=== PATIENT | female | born 1980 | race African-American/Black ===

== ENCOUNTER 2017-11-15 22:22 | Observation (INO) ==
[2017-11-15 22:32] VITALS: BMI 31.1
--- NOTE | 2017-11-16 01:03 | DR.GENAD ---
HPI PCP Primary Care Physician: CASTILLO Complaint/Symptoms Chief Complaint Doctors Comments: Patient presents with complaint of chest and back pain for 4 days. She admits to a history of cardiac catherization x2 w/o any blockage two years ago in [place]. Chief Complaint:: CHEST PAIN FROM BACK DOWN TO LEG Self Treatment fo Chief Complaint: MOTRIN 800MG Source History Provided: Patient Mode of Arrival Mode of Arrival: Ambulatory Timing Onset of Chief Complaint: 11/11/17 Came on: Suddenly Duration Duration: Constant (four days) Severity Severity: Mild PMH PMH Past Medical History: Yes Past Medical History: Diabetes and Hypertension Past Surgical History: Yes Surgical History: Cholecystectomy Past Surgical History Comment: ABLASION TUBAL LIGATION 2 HEART CATHS- BOTH NORMAL PER PATIENT Family History History of Family Medical Conditions: Yes Family Medical History: Heart Failure Family Medical History Comment: RENAL FAILURE Social History Does patient currently use any type of tobacco product: Yes Have you used tobacco products in the last 12 months: Yes Type of Tobacco Use: Cigarettes Does any household member use tobacco: No Alcohol Use: None Do you use any recreational Drugs:: No Lives With: Mom Lives Where: Home infectious screening In the last 2 months have you had wt loss of >10#?: NO Have you had fever, night sweats or hemotysis?: No Have you traveled outside the country in the last 6 months?: No Isolation: Standard ROS Review of Systems Constitutional: No Symptoms Reported; negative Diaphoresis Eyes: No Symptoms Reported; negative Blurred Vision ENTM: negative Ear Discharge Respiratoy: No Symptoms Reported Cardiovascular: See HPI and Chest Pain Gastrointestinal/Abdominal: No Symptoms Reported Genitourinary: No Symptoms Reported Neurological: No Symptoms Reported Musculoskeletal: See HPI Integumentary: No Symptoms Reported Hematologic/Lymphatic: No Symptoms Reported Endocrine: No Symptoms Reported All Other Systems: Reviewed and Negative PE Vital Signs Vitals: Temperature 98.5 F Pulse Rate [Left Brachial] 77 Pulse Rate 88 Respiratory Rate 14 Blood Pressure [Left Arm] 138/82 Blood Pressure 117/77 O2 Sat by Pulse Oximetry 98 General Limitations: No Limitations General Appearance: Alert; negative In Distress Head Head Exam: Normal Inspection Eyes Eye exam: Normal Appearance ENT ENT Exam: Normal Exam External Ear Exam: Normal External Inspection TM/Canal Exam: Bilateral: Normal Nose Exam: Normal Nose Exam Mouth Exam: Normal Inspection Throat Exam: Normal Inspection Neck Neck Exam: Normal Inspection Chest Chest Inspection: Normal Inspection Respiratory Respiratory Exam: Normal Lung Sounds Bilat Respiratory Exam: Bilateral: Clear to Auscultation Cardiovascular Cardiovascular Exam: Regular Rate Abdominal Exam Abdominal Exam: Normal Inspection Abdominal Tenderness: negative RUQ and LLQ Extremities Extremities Exam: Tenderness Back Back Exam: Normal Inspection; negative (R) CVA Tenderness and Paraspinal Tenderness Neurologic Neurological Exam: Alert, Oriented X3, CN II-XII Intact and Normal Gait Psychiatric Psychiatric Exam: Normal Affect Skin Skin Exam: Warm and Normal Color; negative Diaphoresis COURSE Reevaluation 1st: Improved ROR Labs Reviewed Laboratory Results Reviewed?: Yes Result Diagrams: 11/16/17 01:15 11/16/17 01:15 Laboratory: WBC 8.7 X10^3/uL (3.6-10.0) 11/16/17 01:15 RBC 5.19 X10^6/uL (3.5-5.4) 11/16/17 01:15 Hgb 13.4 g/dL (12.0-16.0) 11/16/17 01:15 Hct 39.5 % (36.0-47.0) 11/16/17 01:15 MCV 76.0 fL (80.0-100.0) L 11/16/17 01:15 MCH 25.8 pg (27.0-34.0) L 11/16/17 01:15 MCHC 34.0 g/dL (33.0-35.0) 11/16/17 01:15 RDW 12.8 % (11.6-16.5) 11/16/17 01:15 Plt Count 295 X10^3/uL (150.0-450.0) 11/16/17 01:15 Plt Count Comment Adequate (ADEQUATE) 11/16/17 01:15 MPV 8.7 fL (7.4-11.0) 11/16/17 01:15 Neut % (Auto) 69.2 % (42.0-75.0) 11/16/17 01:15 Lymph % (Auto) 23.4 % (21.0-51.0) 11/16/17 01:15 [place] % (Auto) 6.4 % (0.0-13.0) 11/16/17 01:15 Eos % (Auto) 0.2 % (0.9-2.9) L 11/16/17 01:15 Baso % (Auto) 0.8 % (0.2-1.0) 11/16/17 01:15 Neut # (Auto) 6.0 x10^3/uL (2.2-4.8) H 11/16/17 01:15 Lymph # (Auto) 2.0 X10^3/uL (1.3-2.9) 11/16/17 01:15 [place] # (Auto) 0.6 x10^3/uL (0.3-0.8) 11/16/17 01:15 Eos # (Auto) 0.0 x10^3/uL (0.0-0.2) 11/16/17 01:15 Baso # (Auto) 0.1 X10^3/uL (0.0-0.1) 11/16/17 01:15 Absolute Nucleated RBC 0.1 /100WBC 11/16/17 01:15 Plt Morphology Comment Normal (NORMAL) 11/16/17 01:15 RBC Morphology Abnormal (NORMAL) A 11/16/17 01:15 Hypochromasia Slight A 11/16/17 01:15 Microcytosis Slight A 11/16/17 01:15 Sodium 136 mmol/L (136-145) 11/16/17 01:15 Potassium 3.7 mmol/L (3.5-5.1) 11/16/17 01:15 Chloride 97 mmol/L (98-107) L 11/16/17 01:15 Carbon Dioxide 32.4 mmol/L (21-32) H 11/16/17 01:15 Creatinine 0.85 mg/dL (0.55-1.02) 11/16/17 01:15 Creatine Kinase 27 Units/L (26-192) 11/16/17 01:15 CK-MB (CK-2) < 1.0 ng/mL (0-4.0) 11/16/17 01:15 CK/CKMB % Calc 3.7 % (<4) 11/16/17 01:15 Troponin I < 0.02 ng/mL (0-1.5) 11/16/17 01:15 XRAY XRAY Findings: Negative for acute pathology EKG Rate: 86 [place]: Normal Rhythm: NSR, SB, ST, PACs, Afib, Aflutter, PSVT, MAT, Junctional, JT, PVCs, VT, VF and Paced Hypertrophy: LAE and LVH
--- NOTE | 2017-11-16 01:27 | RAD ---
Chest two views Indication: Chest pain Findings: Comparison to previous exam of the chest December 23, The heart and mediastinum are normal. The lungs are clear. The skeleton is negative. Impression: Negative exam of the chest 2013 Reported By:
[2017-11-16 01:30] LABS: BASOPHILS # (AUTO) 0.1 X10^3/uL (0.0-0.1); BASOPHILS % (AUTO) 0.8 % (0.2-1.0); EOSINOPHILS % (AUTO) 0.2 % (0.9-2.9); HEMATOCRIT 39.5 % (36.0-47.0); HEMOGLOBIN 13.4 g/dL (12.0-16.0); LYMPHOCYTES % (AUTO) 23.4 % (21.0-51.0); MEAN CORPUSCULAR HEMOGLOBIN 25.8 pg (27.0-34.0); MEAN PLATELET VOLUME 8.7 fL (7.4-11.0); MONOCYTES # (AUTO) 0.6 x10^3/uL (0.3-0.8); MONOCYTES % (AUTO) 6.4 % (0.0-13.0); NEUTROPHILS % (AUTO) 69.2 % (42.0-75.0); PLATELET COUNT 295 X10^3/uL (150.0-450.0); RED BLOOD COUNT 5.19 X10^6/uL (3.5-5.4); RED CELL DISTRIBUTION WIDTH 12.8 % (11.6-16.5); WHITE BLOOD COUNT 8.7 X10^3/uL (3.6-10.0)
[2017-11-16 02:28] LABS: HYPOCHROMASIA SLIGHT; MICROCYTOSIS SLIGHT; PLATELET MORPHOLOGY COMMENT NORMAL (NORMAL)
[2017-11-16 02:36] LABS: CARBON DIOXIDE 32.4 mmol/L (21-32); CHLORIDE 97 mmol/L (98-107); CKMB % 3.7 % (<4); CREATINE KINASE 27 Units/L (26-192); CREATINE KINASE MB < 1.0 ng/mL (0-4.0); CREATININE 0.85 mg/dL (0.55-1.02); SODIUM 136 mmol/L (136-145); TROPONIN I < 0.02 ng/mL (0-1.5)
[2017-11-16] MEDS ORDERED: MORPHINE SULFATE INJ 4 MG IM ONE (03:53)
[2017-11-16] MEDS ORDERED: MORPHINE SULFATE INJ 4 MG ONE (03:56)
[2017-11-16 06:07] LABS: ALANINE AMINOTRANSFERASE 10 Units/L (12-78); ALBUMIN 2.5 g/dL (3.4-5.0); ALKALINE PHOSPHATASE 76 Units/L (46-116); ASPARTATE AMINO TRANSFERASE 6 Units/L (15-37); BLOOD UREA NITROGEN 7 mg/dL (7-18); CALCIUM 9.1 mg/dL (8.5-10.1); CARBON DIOXIDE 30.3 mmol/L (21-32); CHLORIDE 98 mmol/L (98-107); CKMB % 4.4 % (<4); COR CA(FOR HYPOALB) 10.3 mg/dL (8.5-10.1); COR NA(FOR HYPERGLY) 142 mmol/L (136-145); CREATINE KINASE 23 Units/L (26-192); CREATINE KINASE MB < 1.0 ng/mL (0-4.0); CREATININE 0.82 mg/dL (0.55-1.02); SODIUM 136 mmol/L (136-145); TOTAL PROTEIN 7.6 g/dL (6.4-8.2); TROPONIN I < 0.02 ng/mL (0-1.5); eGFR NON BLACK RACES > 60 (>60)
[2017-11-16 09:46] LABS: CREATINE KINASE 25 Units/L (26-192); CREATINE KINASE MB < 1.0 ng/mL (0-4.0); TROPONIN I < 0.02 ng/mL (0-1.5)
[2017-11-16] MEDS: COLACE CAP 100 MG PO SCH ×2 (10:31→20:21)
[2017-11-16] MEDS: MILK OF MAGNESIA PO SCH (10:31)
[2017-11-16] MEDS: MORPHINE SULFATE INJ 2 MG INJ IVP PRN ×2 (10:31→18:31)
[2017-11-16 11:24] LABS: CREATINE KINASE 27 Units/L (26-192); CREATINE KINASE MB < 1.0 ng/mL (0-4.0); TROPONIN I < 0.02 ng/mL (0-1.5)
[2017-11-16 11:32] LABS: CKMB % 3.7 % (<4)
[2017-11-16] MEDS: HumuLIN R SUBCUT PRN ×3 (14:21→21:00)
[2017-11-16] MEDS: NICOTINE PATCH TD SCH (15:10)
[2017-11-16 15:28] LABS: BILIRUBIN,URINE NEGATIVE (NEGATIVE); BLOOD/HEMOGLOBIN,URINE 1+ (NEGATIVE); GLUCOSE, URINE 4+ (NEGATIVE); KETONES,URINE NEGATIVE (NEGATIVE); LEUKOCYTE ESTERASE ,URINE 2+ (NEGATIVE); NITRITES,URINE NEGATIVE (NEGATIVE); PROTEIN,URINE NEGATIVE (NEGATIVE); UROBILINOGEN,URINE 1+ (NORMAL)
[2017-11-16 15:39] LABS: APPEARANCE,URINE HAZY (CLEAR); COLOR,URINE YELLOW (YELLOW)
[2017-11-16 16:06] LABS: ABG BASE EXCESS 8.2 mmol/L (-2.0-2.0)
[2017-11-16 16:07] LABS: ABG HCO3 31.9 mmol/L (22-26)
[2017-11-16] MEDS: NS 1000 ML 1,000 ML IV SCH (16:19)
[2017-11-16 16:38] LABS: RBC,URINE 0-2 /HPF (NONE SEEN); SQUAMOUS EPITHELIAL CELL,UR RARE /HPF (NEGATIVE)
[2017-11-16 16:39] LABS: BACTERIA,URINE 2+ /HPF (NEGATIVE)
[2017-11-16 16:40] LABS: AMORPHOUS SEDIMENT,UR TRACE /HPF (NEGATIVE)
[2017-11-16 17:04] LABS: CREATINE KINASE 32 Units/L (26-192); CREATINE KINASE MB < 1.0 ng/mL (0-4.0); TROPONIN I < 0.02 ng/mL (0-1.5)
[2017-11-16 17:07] LABS: CKMB % 3.1 % (<4)
[2017-11-16] MEDS: SNACK - Diabetic Appropriate PO SCH (20:20)
[2017-11-16] MEDS: CHECK PATCH XX SCH (20:22)
[2017-11-16] MEDS: ROCEPHIN VIAL 1 GRAM 1 G in NS 100 ML IV + SPIKE MINIBAG* 100 ML IV SCH (22:45)
[2017-11-17] MEDS: NS 1000 ML 1,000 ML IV SCH ×3 (00:15→16:09)
[2017-11-17 05:24] LABS: BASOPHILS % (AUTO) 0.5 % (0.2-1.0); EOSINOPHILS % (AUTO) 0.3 % (0.9-2.9); HEMOGLOBIN 11.4 g/dL (12.0-16.0); LYMPHOCYTES # (AUTO) 2.2 X10^3/uL (1.3-2.9); LYMPHOCYTES % (AUTO) 28.1 % (21.0-51.0); MEAN CORPUSCULAR HEMOGLOBIN 25.3 pg (27.0-34.0); MEAN CORPUSCULAR HGB CONC 33.6 g/dL (33.0-35.0); MEAN CORPUSCULAR VOLUME 75.1 fL (80.0-100.0); MEAN PLATELET VOLUME 8.5 fL (7.4-11.0); MONOCYTES # (AUTO) 0.7 x10^3/uL (0.3-0.8); MONOCYTES % (AUTO) 8.7 % (0.0-13.0); NEUTROPHILS # (AUTO) 4.8 x10^3/uL (2.2-4.8); NEUTROPHILS % (AUTO) 62.4 % (42.0-75.0); PLATELET COUNT 249 X10^3/uL (150.0-450.0); RED BLOOD COUNT 4.52 X10^6/uL (3.5-5.4); RED CELL DISTRIBUTION WIDTH 12.5 % (11.6-16.5); WHITE BLOOD COUNT 7.7 X10^3/uL (3.6-10.0)
[2017-11-17 05:37] LABS: ALANINE AMINOTRANSFERASE 7 Units/L (12-78); ALBUMIN 2.2 g/dL (3.4-5.0); ALKALINE PHOSPHATASE 68 Units/L (46-116); BLOOD UREA NITROGEN 7 mg/dL (7-18); CALCIUM 8.3 mg/dL (8.5-10.1); CARBON DIOXIDE 28.7 mmol/L (21-32); CHLORIDE 100 mmol/L (98-107); COR CA(FOR HYPOALB) 9.7 mg/dL (8.5-10.1); COR NA(FOR HYPERGLY) 139 mmol/L (136-145); CREATININE 0.74 mg/dL (0.55-1.02); SODIUM 136 mmol/L (136-145); TOTAL PROTEIN 6.9 g/dL (6.4-8.2); eGFR NON BLACK RACES > 60 (>60)
[2017-11-17 05:52] LABS: HYPOCHROMASIA SLIGHT; PLATELET MORPHOLOGY COMMENT NORMAL (NORMAL)
[2017-11-17 05:53] LABS: MICROCYTOSIS SLIGHT
[2017-11-17] MEDS: HumuLIN R SUBCUT PRN ×3 (06:00→22:19)
[2017-11-17 06:17] LABS: ASPARTATE AMINO TRANSFERASE 10 Units/L (15-37)
[2017-11-17] MEDS: ROCEPHIN VIAL 1 GRAM 1 G in NS 100 ML IV + SPIKE MINIBAG* 100 ML IV SCH (09:49)
[2017-11-17] MEDS: MILK OF MAGNESIA PO SCH (09:50)
[2017-11-17] MEDS: NICOTINE PATCH TD SCH (09:50)
[2017-11-17] MEDS: CHECK PATCH XX SCH ×2 (09:51→21:39)
[2017-11-17] MEDS: MORPHINE SULFATE INJ 2 MG INJ IVP PRN ×2 (09:56→21:38)
[2017-11-17] MEDS: GLUCOPHAGE PO SCH ×2 (12:18→21:40)
[2017-11-17] MEDS: ASPIRIN EC 81 MG PO SCH (12:18)
[2017-11-17] MEDS: AMARYL TAB 4 MG PO SCH (12:18)
[2017-11-17] MEDS: HYDROCHLOROTHIAZIDE 25 MG TAB PO SCH (12:19)
[2017-11-17] MEDS: NORVASC TAB 10 MG PO SCH (12:19)
[2017-11-17] MEDS: ZESTRIL TAB 20 MG PO SCH (12:19)
[2017-11-17] MEDS: ZOLOFT PO SCH (12:19)
[2017-11-17] MEDS: NEURONTIN TAB 600 MG PO SCH ×3 (12:19→21:40)
[2017-11-17] MEDS ORDERED: GLUCOPHAGE ONE ×2 (12:22→19:41)
[2017-11-17] MEDS ORDERED: ZOLOFT PO ONE (12:23)
[2017-11-17] MEDS ORDERED: ASPIRIN 81 MG CHEWTAB ONE (12:23)
[2017-11-17] MEDS ORDERED: ZESTRIL TAB 20 MG ONE (12:24)
[2017-11-17] MEDS: ULTRAM PO PRN (14:44)
[2017-11-17] MEDS: ZOCOR TAB 20 MG PO SCH (21:40)
[2017-11-17] MEDS: COLACE CAP 100 MG PO SCH (21:40)
[2017-11-17] MEDS: SNACK - Diabetic Appropriate PO SCH (21:41)
--- NOTE | 2017-11-17 23:11 | DR.H&P ---
H&P - History & Physical for Day of: H&P Date: 11/16/17 - Chief Complaint Chief Complaint: CHEST PAIN - History of Present Illness History of Present Illness: IS A 37 YEAR OLD PATIENT OF WHO PRESENTED TO THE EMERGENCY ROOM WITH COMPLAINTS OF CHEST PAIN AND UPPER BACK PAIN FOR THE PAST FOUR DAYS. PATIENT STATES THAT PAIN IS LOCATED ON THE LEFT SIDE OF CHEST AND RADIATES DOWN TO THE ABDOMEN. SHE REPORTS A CARDIAC CATHERIZATION WITHOUT BLOCKAGES TWO YEARS AGO IN [place]. MEDICAL HISTORY INCLUDES DIABETES, HYPERTENSION, CHOLECYSTECTOMY, ABLASION, AND TUBAL LIGATION. ON ARRIVAL, VITALS WERE 98.5-88-18-99%-117/77. CARDIAC ENZYMES WERE OBTAINED AND WERE NORMAL. EKG REVEALED NORMAL SINUS RHYTHM WITH HR 86. CHEST XRAY NEGATIVE FOR ACUTE ABNORMALITY. SHE WAS GIVEN MORPHINE 4MG IM X 1 DOSE IN THE ER WITH ONLY SLIGHT IMPROVEMENT IN PAIN. PATIENT WAS ADMITTED FOR FURTHER EVALUATION AND TREATMENT OF CHEST PAIN, RULE OUT ACUTE MYOCARDIAL INFARCTION. WE PLAN TO OBTAIN SERIAL CARDIAC ENZYMES, EKG, AND CONTINUE TO MONITOR PATIENT. - Past Medical History Past Medical History: Hypertension, Diabetes - Past Surgical History Surgical History: Cholecystectomy, [facility] Surgery - Family History Family Medical History: Diabetes Mellitus, Hypertension - Social History Does patient currently use any type of tobacco product: No Have you used tobacco products in the last 12 months: No Type of Tobacco Use: None Does any household member use tobacco: No Alcohol Use: None Drug Use: None - Medications Home Medications: codeine Allergy (Verified 11/15/17 22:23) CONTINUE taking the following medications amlodipine 10 mg PO DAILY 11/16/17 [History] aspirin [Aspirin Low Dose] 1 tab PO DAILY 11/16/17 [History] gabapentin 1 tab PO TID 11/16/17 [History] glimepiride 1 tab PO DAILY 11/16/17 [History] hydrochlorothiazide 1 tab PO DAILY 11/16/17 [History] insulin glargine [Basaglar KwikPen U-100 Insulin] 48 units SUB-Q HS 11/16/17 [ History] metformin 1,000 mg PO BID 11/16/17 [History] sertraline 2 tab PO DAILY 11/16/17 [History] simvastatin 1 tab PO HS 11/16/17 [History] - Review of Systems Constitutional: No Symptoms Reported Eyes: No Symptoms Reported ENT: No Symptoms Reported Respiratory: No Symptoms Reported Cardiovascular: Chest Pain Gastrointestinal: Abdominal Pain Genitourinary: No Symptoms Reported Musculoskeletal: No Symptoms Reported Skin: No Symptoms Reported Neurological: No Symptoms Reported - Physical Exam Vital Signs: Temperature 98.3 F Pulse Rate [Right Brachial] 85 Pulse Rate [Left Brachial] 97 Pulse Rate 88 Respiratory Rate 20 Blood Pressure [Right Arm] 125/75 Blood Pressure [Left Arm] 121/67 Blood Pressure 117/77 O2 Sat by Pulse Oximetry 98 Oriented: Normal Eyes: Normal Ear: Normal Nose: Normal Throat: Normal Respiratory: Clear Throughout Cardiovascular: Normal. negative: S3, S4, Murmur : Normal Auscultation: Bowel Sounds: Normal Palpation: Normal Tenderness: Normal Skin: Normal Musculoskeletal: Normal Psychiatric: Normal Mood Description: Calm Affect: Normal Speech Pattern: Clear - Assessment/Plan (1) Chest pain, rule out acute myocardial infarction Status: Acute Plan: ADMIT, SERIAL CARDIAC ENZYMES AND EKG, TELEMETRY, SUPPLEMENTAL OXYGEN, MORPHINE PRN PAIN - Allergies Allergies/Adverse Reactions: Allergies Allergy/AdvReac Type Severity Reaction Status Date / Time codeine Allergy Verified 11/15/17 22:23
--- NOTE | 2017-11-18 00:23 | PCM.PROG ---
Progress Note - Progress Note for Day of Date of Exam: 11/17/17 - Subjective Subjective: WAS ADMITTED FOR CHEST PAIN, RULE OUT AMI. TODAY, SHE IS ALERT AND ORIENTED, LYING IN BED ON MORNING ROUNDS. SHE CONTINUES WITH COMPLAINTS OF INTERMITTENT CHEST PAIN. SHE DENIES SHORTNESS OF BREATH AT THIS TIME. SHE IS ALSO NOTED WITH COMPLAINTS OF SUPRAPUBIC PAIN. URINALYSIS REVEALED WBC 10-20, RBC 0-2, LEUKOCYTES 2+, BACTERIA 2+. HER VITALS TODAY ARE 98.5-80-18- 99%-143/72. CARDIAC ENZYMES HAVE BEEN WITHIN NORMAL LIMITS. MOST RECENT EKG REVEALS SINUS RHYTHM WITH HR 83. SHE IS HEMODYNAMICALLY STABLE TODAY WITH THE EXCEPTION OF HER GLUCOSE BEING ELEVATED. SHE IS CURRENTLY RECEIVING ROCEPHIN 1GM IV DAILY FOR UTI AND MORPHINE 2MG IV Q4H PRN FOR CHEST PAIN. WE WILL CONTINUE WITH CURRENT PLAN OF CARE TODAY. WE WILL RESUME HER HOME DIABETIC MEDICATIONS. OTHERWISE, WE PLAN TO FOLLOW UP WITH AM LABS AND CONTINUE TO MONITOR PATIENT. - Past Medical Family Social History Past Med/Fam/Surg Hx: No changes since H&P Allergies: Allergies codeine Allergy (Verified 11/15/17 22:23) - Review of Systems ROS: No change since H&P - Vital Signs and I&O's Vital Signs: Temperature 98.3 F Pulse Rate [Right Brachial] 84 Pulse Rate [Left Brachial] 97 Pulse Rate 88 Respiratory Rate 20 Blood Pressure [Right Arm] 129/77 Blood Pressure [Left Arm] 121/67 Blood Pressure 117/77 O2 Sat by Pulse Oximetry 98 Intake and Output: Intake & Output 11/15/17 11/16/17 11/17/17 11/18/17 11:59 11:59 11:59 11:59 Intake Total 1280 / 1280 0 / 1880 Output Total 800 / 800 Balance 480 / 480 1879 / 1879 - Physical Exam Oriented: Normal Eyes: Normal Ear: Normal Nose: Normal Throat: Normal Cardiovascular: Normal. negative: S3, S4, Murmur : Normal Auscultation: Bowel Sounds: Normal Palpation: Normal Tenderness: Normal Skin: Normal Musculoskeletal: Normal Psychiatric: Normal Mood Description: Calm Affect: Normal Speech Pattern: Clear - Laboratory and Diagnostics Result Diagrams: 11/17/17 05:00 11/17/17 05:00 Labs: 11/16/17 15:13 Urine,Clean Catch Urine Culture - Preliminary Laboratory WBC 7.7 X10^3/uL (3.6-10.0) 11/17/17 05:00 RBC 4.52 X10^6/uL (3.5-5.4) 11/17/17 05:00 Hgb 11.4 g/dL (12.0-16.0) L D 11/17/17 05:00 Hct 34.0 % (36.0-47.0) L 11/17/17 05:00 MCV 75.1 fL (80.0-100.0) L 11/17/17 05:00 MCH 25.3 pg (27.0-34.0) L 11/17/17 05:00 MCHC 33.6 g/dL (33.0-35.0) 11/17/17 05:00 RDW 12.5 % (11.6-16.5) 11/17/17 05:00 Plt Count 249 X10^3/uL (150.0-450.0) 11/17/17 05:00 Plt Count Comment Adequate (ADEQUATE) 11/17/17 05:00 MPV 8.5 fL (7.4-11.0) 11/17/17 05:00 Neut % (Auto) 62.4 % (42.0-75.0) 11/17/17 05:00 Lymph % (Auto) 28.1 % (21.0-51.0) 11/17/17 05:00 [place] % (Auto) 8.7 % (0.0-13.0) 11/17/17 05:00 Eos % (Auto) 0.3 % (0.9-2.9) L 11/17/17 05:00 Baso % (Auto) 0.5 % (0.2-1.0) 11/17/17 05:00 Neut # (Auto) 4.8 x10^3/uL (2.2-4.8) 11/17/17 05:00 Lymph # (Auto) 2.2 X10^3/uL (1.3-2.9) 11/17/17 05:00 [place] # (Auto) 0.7 x10^3/uL (0.3-0.8) 11/17/17 05:00 Eos # (Auto) 0.0 x10^3/uL (0.0-0.2) 11/17/17 05:00 Baso # (Auto) 0.0 X10^3/uL (0.0-0.1) 11/17/17 05:00 Absolute Nucleated RBC 0.0 /100WBC 11/17/17 05:00 Plt Morphology Comment Normal (NORMAL) 11/17/17 05:00 RBC Morphology Abnormal (NORMAL) A 11/17/17 05:00 Hypochromasia Slight A 11/17/17 05:00 Microcytosis Slight A 11/17/17 05:00 Sample Site Rbra 11/16/17 15:57 ABG pH 7.510 (7.35-7.45) H 11/16/17 15:57 ABG pCO2 40.0 mmHg (35.0-45.0) 11/16/17 15:57 ABG pO2 87.0 mmHg (80.0-100.0) 11/16/17 15:57 ABG HCO3 31.9 mmol/L (22-26) H* 11/16/17 15:57 ABG O2 Saturation 97.0 % (90-100) 11/16/17 15:57 ABG Base Excess 8.2 mmol/L (-2.0-2.0) H 11/16/17 15:57 Giels Test Na 11/16/17 15:57 A-a Gradient 13.0 mmHg 11/16/17 15:57 FiO2 21.000 11/16/17 15:57 Blood Gas Comments Karina abg well-mtf 11/16/17 15:57 Sodium 136 mmol/L (136-145) 11/17/17 05:00 Corrected Sodium 139 mmol/L (136-145) 11/17/17 05:00 Potassium 3.7 mmol/L (3.5-5.1) 11/17/17 05:00 Chloride 100 mmol/L (98-107) 11/17/17 05:00 Carbon Dioxide 28.7 mmol/L (21-32) 11/17/17 05:00 BUN 7 mg/dL (7-18) 11/17/17 05:00 Creatinine 0.74 mg/dL (0.55-1.02) 11/17/17 05:00 Est GFR (MDRD) Af Amer > 60 (>60) 11/17/17 05:00 Est GFR (MDRD) Non-Af > 60 (>60) 11/17/17 05:00 Glucose 227 mg/dL (65-99) H 11/17/17 05:00 POC Glucose (mg/dL) 231 mg/dL (65-99) H 11/17/17 20:34 Hemoglobin A1c 12.2 % 11/16/17 10:46 Calcium 8.3 mg/dL (8.5-10.1) L 11/17/17 05:00 Corrected Calcium 9.7 mg/dL (8.5-10.1) 11/17/17 05:00 Total Bilirubin 0.30 mg/dL (0.2-1.0) 11/17/17 05:00 AST 10 Units/L (15-37) L 11/17/17 05:00 ALT 7 Units/L (12-78) L 11/17/17 05:00 Alkaline Phosphatase 68 Units/L (46-116) 11/17/17 05:00 Creatine Kinase 32 Units/L (26-192) 11/16/17 16:19 CK-MB (CK-2) < 1.0 ng/mL (0-4.0) 11/16/17 16:19 CK/CKMB % Calc 3.1 % (<4) 11/16/17 16:19 Troponin I < 0.02 ng/mL (0-1.5) 11/16/17 16:19 Total Protein 6.9 g/dL (6.4-8.2) 11/17/17 05:00 Albumin 2.2 g/dL (3.4-5.0) L 11/17/17 05:00 Globulin 4.7 g/dL (2.5-4.5) H 11/17/17 05:00 Albumin/Globulin Ratio 0.5 Ratio (1.1-2.1) L 11/17/17 05:00 Specimen Type Clean catch urine 11/16/17 15:13 Urine Color Yellow (YELLOW) 11/16/17 15:13 Urine Appearance Hazy (CLEAR) 11/16/17 15:13 Urine pH 7.0 (5.0 - 8.0) 11/16/17 15:13 Ur Specific [facility] 1.005 (1.000-1.030) 11/16/17 15:13 Urine Protein Negative (NEGATIVE) 11/16/17 15:13 Urine Glucose (UA) 4+ (NEGATIVE) 11/16/17 15:13 Urine Ketones Negative (NEGATIVE) 11/16/17 15:13 Urine Occult Blood 1+ (NEGATIVE) 11/16/17 15:13 Urine Nitrite Negative (NEGATIVE) 11/16/17 15:13 Urine Bilirubin Negative (NEGATIVE) 11/16/17 15:13 Urine Acetone Negative (NEGATIVE) 11/17/17 01:47 Urine Urobilinogen 1+ (NORMAL) 11/16/17 15:13 Ur Leukocyte Esterase 2+ (NEGATIVE) 11/16/17 15:13 Urine RBC 0-2 /HPF (NONE SEEN) 11/16/17 15:13 Urine WBC 10-20 /HPF (NONE SEEN) 11/16/17 15:13 Ur Squamous Epith Cells Rare /HPF (NEGATIVE) 11/16/17 15:13 Amorphous Sediment Trace /HPF (NEGATIVE) 11/16/17 15:13 Urine Bacteria 2+ /HPF (NEGATIVE) 11/16/17 15:13 Ur Culture Indicated? 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
[2017-11-18] MEDS: NS 1000 ML 1,000 ML IV SCH ×3 (00:59→16:03)
[2017-11-18] MEDS: INSULIN GLARGINE 38 UNIT Sub-Q SCH ×2 (00:59→20:58)
[2017-11-18] MEDS: NEURONTIN TAB 600 MG PO SCH ×3 (05:21→21:28)
[2017-11-18] MEDS: HumuLIN R SUBCUT PRN ×4 (05:51→20:59)
[2017-11-18 06:19] LABS: BASOPHILS % (AUTO) 0.5 % (0.2-1.0); EOSINOPHILS % (AUTO) 0.5 % (0.9-2.9); HEMATOCRIT 32.5 % (36.0-47.0); HEMOGLOBIN 10.9 g/dL (12.0-16.0); LYMPHOCYTES # (AUTO) 2.5 X10^3/uL (1.3-2.9); LYMPHOCYTES % (AUTO) 40.1 % (21.0-51.0); MEAN CORPUSCULAR HEMOGLOBIN 25.4 pg (27.0-34.0); MEAN CORPUSCULAR HGB CONC 33.6 g/dL (33.0-35.0); MEAN CORPUSCULAR VOLUME 75.7 fL (80.0-100.0); MEAN PLATELET VOLUME 8.9 fL (7.4-11.0); MONOCYTES # (AUTO) 0.4 x10^3/uL (0.3-0.8); NEUTROPHILS # (AUTO) 3.2 x10^3/uL (2.2-4.8); NEUTROPHILS % (AUTO) 51.9 % (42.0-75.0); PLATELET COUNT 253 X10^3/uL (150.0-450.0); RED BLOOD COUNT 4.29 X10^6/uL (3.5-5.4); RED CELL DISTRIBUTION WIDTH 12.5 % (11.6-16.5); WHITE BLOOD COUNT 6.2 X10^3/uL (3.6-10.0)
[2017-11-18] MEDS: MORPHINE SULFATE INJ 2 MG INJ IVP PRN ×2 (07:00→23:35)
[2017-11-18 07:06] LABS: ALANINE AMINOTRANSFERASE 7 Units/L (12-78); ALBUMIN 2.2 g/dL (3.4-5.0); ALKALINE PHOSPHATASE 68 Units/L (46-116); ASPARTATE AMINO TRANSFERASE 8 Units/L (15-37); BLOOD UREA NITROGEN 5 mg/dL (7-18); CALCIUM 8.3 mg/dL (8.5-10.1); CARBON DIOXIDE 29.1 mmol/L (21-32); CHLORIDE 99 mmol/L (98-107); COR CA(FOR HYPOALB) 9.7 mg/dL (8.5-10.1); COR NA(FOR HYPERGLY) 138 mmol/L (136-145); CREATININE 0.67 mg/dL (0.55-1.02); HYPOCHROMASIA SLIGHT; PLATELET MORPHOLOGY COMMENT NORMAL (NORMAL); SODIUM 136 mmol/L (136-145); TOTAL PROTEIN 6.8 g/dL (6.4-8.2); eGFR NON BLACK RACES > 60 (>60)
[2017-11-18] MEDS ORDERED: ZOLOFT PO ONE (07:17)
[2017-11-18] MEDS ORDERED: GLUCOPHAGE ONE ×2 (07:17→19:29)
[2017-11-18] MEDS ORDERED: ZESTRIL TAB 20 MG ONE ×2 (07:19→08:44)
[2017-11-18] MEDS: AMARYL TAB 4 MG PO SCH (08:40)
[2017-11-18] MEDS: CHECK PATCH XX SCH ×2 (08:40→20:57)
[2017-11-18] MEDS: ASPIRIN EC 81 MG PO SCH (08:40)
[2017-11-18] MEDS: HYDROCHLOROTHIAZIDE 25 MG TAB PO SCH (08:41)
[2017-11-18] MEDS: GLUCOPHAGE PO SCH ×2 (08:41→20:58)
[2017-11-18] MEDS: MILK OF MAGNESIA PO SCH (08:41)
[2017-11-18] MEDS: NICOTINE PATCH TD SCH (08:42)
[2017-11-18] MEDS: NORVASC TAB 10 MG PO SCH (08:42)
[2017-11-18] MEDS: ZESTRIL TAB 20 MG PO SCH (08:42)
[2017-11-18] MEDS: ROCEPHIN VIAL 1 GRAM 1 G in NS 100 ML IV + SPIKE MINIBAG* 100 ML IV SCH (08:43)
[2017-11-18] MEDS: ZOLOFT PO SCH (08:43)
[2017-11-18 10:12] LABS: CREATINE KINASE 28 Units/L (26-192); CREATINE KINASE MB < 1.0 ng/mL (0-4.0); TROPONIN I < 0.02 ng/mL (0-1.5)
[2017-11-18 10:21] LABS: CKMB % 3.6 % (<4)
--- NOTE | 2017-11-18 13:54 | PCM.PROG ---
Progress Note - Progress Note for Day of Date of Exam: 11/18/17 - Subjective Subjective: WAS ADMITTED FOR CHEST PAIN, RULE OUT AMI. TODAY, SHE IS ALERT AND ORIENTED, LYING IN BED ON MORNING ROUNDS. SHE CONTINUES WITH COMPLAINTS OF INTERMITTENT CHEST PAIN, GENERALIZED WEAKNESS, AND SUPRAPUBIC PAIN. HER VITALS TODAY ARE 97.9-74-18-98%-120/68. HER GLUCOSE REMAINS ELEVATED WITH LEVELS VARYING FROM THE 190s-270s. OTHERWISE, SHE IS HEMODYNAMICALLY STABLE. SHE IS CURRENTLY RECEIVING ROCEPHIN 1GM IV DAILY FOR UTI AND MORPHINE 2MG IV Q4H PRN FOR CHEST PAIN. WE WILL CONTINUE WITH CURRENT PLAN OF CARE TODAY. WE WILL ALSO CHECK ANOTHER SERIES OF CARDIAC ENZYMES AND EKGS. OTHERWISE , WE PLAN TO FOLLOW UP WITH AM LABS AND CONTINUE TO MONITOR PATIENT. - Past Medical Family Social History Past Med/Fam/Surg Hx: No changes since H&P Allergies: Allergies codeine Allergy (Verified 11/15/17 22:23) - Review of Systems ROS: No change since H&P - Vital Signs and I&O's Vital Signs: Temperature 97.9 F Pulse Rate [Right Brachial] 74 Pulse Rate [Left Brachial] 74 Pulse Rate 88 Respiratory Rate 18 Blood Pressure [Right Arm] 143/74 Blood Pressure [Left Arm] 121/67 Blood Pressure 117/77 O2 Sat by Pulse Oximetry 100 Intake and Output: Intake & Output 11/16/17 11/17/17 11/18/17 11/19/17 11:59 11:59 11:59 11:59 Intake Total 1280 / 1280 2548 / 2548 Output Total 800 / 800 Balance 480 / 480 2548 / 2548 - Physical Exam Oriented: Normal Eyes: Normal Ear: Normal Nose: Normal Throat: Normal Cardiovascular: Normal. negative: S3, S4, Murmur : Normal Auscultation: Bowel Sounds: Normal Tenderness: Normal Skin: Normal Musculoskeletal: Normal Psychiatric: Normal Mood Description: Calm Affect: Normal Speech Pattern: Clear, Appropriate - Laboratory and Diagnostics Result Diagrams: 11/18/17 05:00 11/18/17 05:00 Labs: 11/16/17 15:13 Urine,Clean Catch Urine Culture - Final Escherichia Coli Laboratory WBC 6.2 X10^3/uL (3.6-10.0) 11/18/17 05:00 RBC 4.29 X10^6/uL (3.5-5.4) 11/18/17 05:00 Hgb 10.9 g/dL (12.0-16.0) L 11/18/17 05:00 Hct 32.5 % (36.0-47.0) L 11/18/17 05:00 MCV 75.7 fL (80.0-100.0) L 11/18/17 05:00 MCH 25.4 pg (27.0-34.0) L 11/18/17 05:00 MCHC 33.6 g/dL (33.0-35.0) 11/18/17 05:00 RDW 12.5 % (11.6-16.5) 11/18/17 05:00 Plt Count 253 X10^3/uL (150.0-450.0) 11/18/17 05:00 Plt Count Comment Adequate (ADEQUATE) 11/18/17 05:00 MPV 8.9 fL (7.4-11.0) 11/18/17 05:00 Neut % (Auto) 51.9 % (42.0-75.0) 11/18/17 05:00 Lymph % (Auto) 40.1 % (21.0-51.0) 11/18/17 05:00 [place] % (Auto) 7.0 % (0.0-13.0) 11/18/17 05:00 Eos % (Auto) 0.5 % (0.9-2.9) L 11/18/17 05:00 Baso % (Auto) 0.5 % (0.2-1.0) 11/18/17 05:00 Neut # (Auto) 3.2 x10^3/uL (2.2-4.8) 11/18/17 05:00 Lymph # (Auto) 2.5 X10^3/uL (1.3-2.9) 11/18/17 05:00 [place] # (Auto) 0.4 x10^3/uL (0.3-0.8) 11/18/17 05:00 Eos # (Auto) 0.0 x10^3/uL (0.0-0.2) 11/18/17 05:00 Baso # (Auto) 0.0 X10^3/uL (0.0-0.1) 11/18/17 05:00 Absolute Nucleated RBC 0.0 /100WBC 11/18/17 05:00 Plt Morphology Comment Normal (NORMAL) 11/18/17 05:00 RBC Morphology Abnormal (NORMAL) A 11/18/17 05:00 Hypochromasia Slight A 11/18/17 05:00 Microcytosis Slight A 11/17/17 05:00 Sample Site Rbra 11/16/17 15:57 ABG pH 7.510 (7.35-7.45) H 11/16/17 15:57 ABG pCO2 40.0 mmHg (35.0-45.0) 11/16/17 15:57 ABG pO2 87.0 mmHg (80.0-100.0) 11/16/17 15:57 ABG HCO3 31.9 mmol/L (22-26) H* 11/16/17 15:57 ABG O2 Saturation 97.0 % (90-100) 11/16/17 15:57 ABG Base Excess 8.2 mmol/L (-2.0-2.0) H 11/16/17 15:57 Giles Test Na 11/16/17 15:57 A-a Gradient 13.0 mmHg 11/16/17 15:57 FiO2 21.000 11/16/17 15:57 Blood Gas Comments Karina abg well-mtf 11/16/17 15:57 Sodium 136 mmol/L (136-145) 11/18/17 05:00 Corrected Sodium 138 mmol/L (136-145) 11/18/17 05:00 Potassium 3.5 mmol/L (3.5-5.1) 11/18/17 05:00 Chloride 99 mmol/L (98-107) 11/18/17 05:00 Carbon Dioxide 29.1 mmol/L (21-32) 11/18/17 05:00 BUN 5 mg/dL (7-18) L 11/18/17 05:00 Creatinine 0.67 mg/dL (0.55-1.02) 11/18/17 05:00 Est GFR (MDRD) Af Amer > 60 (>60) 11/18/17 05:00 Est GFR (MDRD) Non-Af > 60 (>60) 11/18/17 05:00 Glucose 197 mg/dL (65-99) H 11/18/17 05:00 POC Glucose (mg/dL) 221 mg/dL (65-99) H 11/18/17 12:09 Hemoglobin A1c 12.2 % 11/16/17 10:46 Calcium 8.3 mg/dL (8.5-10.1) L 11/18/17 05:00 Corrected Calcium 9.7 mg/dL (8.5-10.1) 11/18/17 05:00 Total Bilirubin 0.20 mg/dL (0.2-1.0) 11/18/17 05:00 AST 8 Units/L (15-37) L 11/18/17 05:00 ALT 7 Units/L (12-78) L 11/18/17 05:00 Alkaline Phosphatase 68 Units/L (46-116) 11/18/17 05:00 Creatine Kinase 28 Units/L (26-192) 11/18/17 09:40 CK-MB (CK-2) < 1.0 ng/mL (0-4.0) 11/18/17 09:40 CK/CKMB % Calc 3.6 % (<4) 11/18/17 09:40 Troponin I < 0.02 ng/mL (0-1.5) 11/18/17 09:40 Total Protein 6.8 g/dL (6.4-8.2) 11/18/17 05:00 Albumin 2.2 g/dL (3.4-5.0) L 11/18/17 05:00 Globulin 4.6 g/dL (2.5-4.5) H 11/18/17 05:00 Albumin/Globulin Ratio 0.5 Ratio (1.1-2.1) L 11/18/17 05:00 Specimen Type Clean catch urine 11/16/17 15: Urine Color Yellow (YELLOW) 11/16/17 15: Urine Appearance Hazy (CLEAR) 11/16/17 15: Urine pH 7.0 (5.0 - 8.0) 11/16/17 15: Ur Specific [place] 1.005 (1.000-1.030) 11/16/17 15:13 Urine Protein Negative (NEGATIVE) 11/16/17 15: Urine Glucose (UA) 4+ (NEGATIVE) 11/16/17 15:13 Urine Ketones Negative (NEGATIVE) 11/16/17 15:13 Urine Occult Blood 1+ (NEGATIVE) 11/16/17 15:13 Urine Nitrite Negative (NEGATIVE) 11/16/17 15:13 Urine Bilirubin Negative (NEGATIVE) 11/16/17 15:13 Urine Acetone Negative (NEGATIVE) 11/17/17 01:47 Urine Urobilinogen 1+ (NORMAL) 11/16/17 15:13 Ur Leukocyte Esterase 2+ (NEGATIVE) 11/16/17 15:13 Urine RBC 0-2 /HPF (NONE SEEN) 11/16/17 15:13 Urine WBC 10-20 /HPF (NONE SEEN) 11/16/17 15:13 Ur Squamous Epith Cells Rare /HPF (NEGATIVE) 11/16/17 15:13 Amorphous Sediment Trace /HPF (NEGATIVE) 11/16/17 15:13 Urine Bacteria 2+ /HPF (NEGATIVE) 11/16/17 15:13 Ur Culture Indicated? Yes/culture set up 11/16/17 15:13 - Plan (1) Chest pain, rule out acute myocardial infarction Status: Acute Plan: ADMIT, SERIAL CARDIAC ENZYMES AND EKG, TELEMETRY, SUPPLEMENTAL OXYGEN, MORPHINE PRN PAIN (2) Urinary tract infection Status: Acute Qualifiers: Urinary tract infection type: acute cystitis Hematuria presence: without hematuria Qualified Code(s): N30.00 - Acute cystitis without hematuria Plan: ROCEPHIN 1GM IV DAILY (3) Diabetes mellitus, type 2 Status: Chronic Qualifiers: Diabetes mellitus longwall machine operator helper insulin use: with assisted use Diabetes mellitus complication status: with hyperglycemia Qualified Code(s): E11.65 - Type 2 diabetes mellitus with hyperglycemia; Z79.4 - manager long term care (current) use of insulin Plan: CONTINUE HOME MEDICATIONS, CONTINUE TO MONITOR (4) Hypertension Status: Chronic Qualifiers: Hypertension type: essential hypertension Qualified Code(s): I10 - Essential (primary) hypertension Plan: CONTINUE HOME MEDICATIONS
[2017-11-18 14:02] LABS: CREATINE KINASE 31 Units/L (26-192); CREATINE KINASE MB < 1.0 ng/mL (0-4.0); TROPONIN I < 0.02 ng/mL (0-1.5)
[2017-11-18 14:11] LABS: CKMB % 3.2 % (<4)
[2017-11-18] MEDS ORDERED: ZOFRAN INJ 4 MG VIAL ONE (15:22)
[2017-11-18] MEDS: ULTRAM PO PRN (16:01)
[2017-11-18] MEDS ORDERED: ZOFRAN INJ 4 MG VIAL IVP ONE (16:02)
[2017-11-18 18:21] LABS: CREATINE KINASE 31 Units/L (26-192); CREATINE KINASE MB < 1.0 ng/mL (0-4.0); TROPONIN I < 0.02 ng/mL (0-1.5)
[2017-11-18 18:23] LABS: CKMB % 3.2 % (<4)
[2017-11-18] MEDS: SNACK - Diabetic Appropriate PO SCH (20:57)
[2017-11-18] MEDS: COLACE CAP 100 MG PO SCH (20:57)
[2017-11-18] MEDS: ZOCOR TAB 20 MG PO SCH (20:57)
[2017-11-19] MEDS: NS 1000 ML 1,000 ML IV SCH ×3 (00:16→17:29)
[2017-11-19] MEDS: NEURONTIN TAB 600 MG PO SCH ×2 (05:07→14:57)
[2017-11-19 05:29] LABS: BASOPHILS % (AUTO) 0.4 % (0.2-1.0); EOSINOPHILS % (AUTO) 0.4 % (0.9-2.9); HEMATOCRIT 33.1 % (36.0-47.0); HEMOGLOBIN 11.4 g/dL (12.0-16.0); LYMPHOCYTES # (AUTO) 2.6 X10^3/uL (1.3-2.9); LYMPHOCYTES % (AUTO) 40.4 % (21.0-51.0); MEAN CORPUSCULAR HEMOGLOBIN 25.8 pg (27.0-34.0); MEAN CORPUSCULAR HGB CONC 34.3 g/dL (33.0-35.0); MEAN CORPUSCULAR VOLUME 75.1 fL (80.0-100.0); MEAN PLATELET VOLUME 8.4 fL (7.4-11.0); MONOCYTES # (AUTO) 0.5 x10^3/uL (0.3-0.8); MONOCYTES % (AUTO) 8.3 % (0.0-13.0); NEUTROPHILS # (AUTO) 3.2 x10^3/uL (2.2-4.8); NEUTROPHILS % (AUTO) 50.5 % (42.0-75.0); PLATELET COUNT 279 X10^3/uL (150.0-450.0); RED BLOOD COUNT 4.41 X10^6/uL (3.5-5.4); RED CELL DISTRIBUTION WIDTH 12.5 % (11.6-16.5); WHITE BLOOD COUNT 6.4 X10^3/uL (3.6-10.0)
[2017-11-19 05:37] LABS: ALANINE AMINOTRANSFERASE 9 Units/L (12-78); ALBUMIN 2.3 g/dL (3.4-5.0); ALKALINE PHOSPHATASE 76 Units/L (46-116); ASPARTATE AMINO TRANSFERASE 6 Units/L (15-37); BLOOD UREA NITROGEN 5 mg/dL (7-18); CALCIUM 8.6 mg/dL (8.5-10.1); CARBON DIOXIDE 31.9 mmol/L (21-32); CHLORIDE 101 mmol/L (98-107); COR NA(FOR HYPERGLY) 139 mmol/L (136-145); CREATININE 0.71 mg/dL (0.55-1.02); SODIUM 137 mmol/L (136-145); TOTAL PROTEIN 6.9 g/dL (6.4-8.2); eGFR NON BLACK RACES > 60 (>60)
[2017-11-19 06:21] LABS: HYPOCHROMASIA SLIGHT; MICROCYTOSIS SLIGHT; PLATELET MORPHOLOGY COMMENT NORMAL (NORMAL)
[2017-11-19] MEDS ORDERED: ZOLOFT PO ONE (08:57)
[2017-11-19] MEDS ORDERED: GLUCOPHAGE ONE (08:57)
[2017-11-19] MEDS ORDERED: ZESTRIL TAB 20 MG ONE (08:58)
[2017-11-19] MEDS: MILK OF MAGNESIA PO SCH (09:28)
[2017-11-19] MEDS: HYDROCHLOROTHIAZIDE 25 MG TAB PO SCH (09:28)
[2017-11-19] MEDS: ROCEPHIN VIAL 1 GRAM 1 G in NS 100 ML IV + SPIKE MINIBAG* 100 ML IV SCH (09:28)
[2017-11-19] MEDS: NORVASC TAB 10 MG PO SCH (09:33)
[2017-11-19] MEDS: ZESTRIL TAB 20 MG PO SCH (09:33)
[2017-11-19] MEDS: AMARYL TAB 4 MG PO SCH (09:34)
[2017-11-19] MEDS: ASPIRIN EC 81 MG PO SCH (09:34)
[2017-11-19] MEDS: NICOTINE PATCH TD SCH (09:34)
[2017-11-19] MEDS: GLUCOPHAGE PO SCH (09:34)
[2017-11-19] MEDS: CHECK PATCH XX SCH (09:36)
[2017-11-19] MEDS: ZOLOFT PO SCH (09:36)
[2017-11-19] MEDS: MORPHINE SULFATE INJ 2 MG INJ IVP PRN (09:43)
[2017-11-19] MEDS: ULTRAM PO PRN (09:54)
[2017-11-19] MEDS: HumuLIN R SUBCUT PRN (11:56)
[2017-11-19] MEDS ORDERED: LEVSIN/MAALOX/LIDOC VISC PO ONE (13:39)
[2017-11-19] MEDS ORDERED: MORPHINE SULFATE INJ 2 MG INJ IVP PRN (13:42)
[2017-11-19] MEDS ORDERED: PERCOCET TAB 5/325 MG PO PRN (13:42)
[2017-11-19] MEDS ORDERED: PEPCID 20 MG IV PREMIX* 20 MG/50 ML BAG IV SCH (14:00)
[2017-11-19 14:37] LABS: AMYLASE 31 Units/L (25-115); LIPASE 77 Units/L (73-393)
--- NOTE | 2017-11-19 15:01 | RAD ---
HISTORY: Abdominal pain Study: KUB Comparison: None Findings: The abdominal gas pattern is nonspecific and nonobstructive. No abnormal masses or abnormal calcifica tions are identified. The regional skeleton is intact. IMPRESSION: Unremarkable KUB Reported By:
[2017-11-19 15:10] LABS: CKMB % 0.9 % (<4); CREATINE KINASE MB 0.3 ng/mL (0-4.0)
[2017-11-19 20:06] VITALS: BP 129/74
== END 2017-11-19 20:20 | disposition home or self-care (01) ==
LOC: ER 22:22 → MED/SURG 22:22
PROVIDERS: ADMIT Internal Medicine; ATTEND Internal Medicine
DX: B96.29 Other Escherichia coli [E. coli] as the cause of diseases classified elsewhere; E11.65 Type 2 diabetes mellitus with hyperglycemia; R94.31 Abnormal electrocardiogram [ECG] [EKG]; Z79.4 Long term (current) use of insulin; I10 Essential (primary) hypertension; R07.89 Other chest pain; N30.00 Acute cystitis without hematuria; M54.89 Other dorsalgia; R53.1 Weakness
CPT/HCPCS: 36415; 36600; 71020; 71046; 74000; 74018; 80051; 80053; 81001; 82009; 82150; 82550; 82553; 82565; 82803; 82947; 83036; 83690; 84484; 85025; 86677; 87086; 87088; 87186; 93005; 93010; 96365; 96372; 99284; A4222; S0028; G0378; J0696; J1815; J2270; J2405; J7030; J7050